=== PATIENT | male | born 1990 | race Caucasian/White ===

== ENCOUNTER → 2023-09-29 | Outpatient (CLI) | payer BC ==
--- NOTE | 2023-09-29 07:49 | US ---
EXAMINATION TYPE: US liver DATE OF EXAM: 09/29/2023 COMPARISON: NONE CLINICAL INDICATION: Male, 33 years old with history of R94.5 abn labs, R00.2; Elevated liver enzymes TECHNIQUE: Multiple sonographic images of the right upper quadrant are obtained. 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
--- NOTE | 2023-09-29 10:28 | CA ---
Stress Echo Report Manny Perkins Age: 33 Gender: M : 1990 Exam Date: 09/29/2023 09:29 Exam Location: [facility] Ht (in): 72 Wt (lb): 310 Ordering Physician: Pop Cade DO Referring Physician: POP CADE Manager Account Management: Phyllis Starks [facility] Technologist Mirta Gongkarthikeyan POOLE Procedure CPT: Indication: R00.2 palpitations ICD-9 Codes: Rhythm: Patient History: PALPITATIONS, HYPERTENSION, FAMILY HISTORY, SMOKER (QUIT TOBACCO 3 YEARS AGO, CURRENTLY VAPES) ASTHMA Cardiac Medications: LOZARTAN, AMLODIPINE, HYDROCHLOROTHIAZIDE Medications in past 24 hours: Contrast: N/A Stress Results Protocol: Bert Total dose(mL): Exercise Duration (min:sec): 09:[address] Depression (mm): Angina Score: Rossi Score: METS: 10.9 Resting HR: 67 Resting BP: 139 / 66 Peak HR: 170 Peak BP: 241 / 54 Max Predicted HR: 189 90 % Max Predicted HR Target HR: 161 Double Product: 39067 Stress Summary: The patient's target heart rate was achieved BP Response: Reason for Termination: Reached target heart rate or work-load, Maximal effort/unable to continue Cardiac Symptoms: ASYMPTOMATIC ECG Analysis Resting ECG: Stress ECG: Arrhythmia: Echo Analysis Resting Echo: Peak Echo Analysis: MEASUREMENTS (Male/Female) Normal Values CONCLUSIONS Baseline EKG revealed a normal sinus rhythm without significant ST-T changes. Patient walked for 9-1/2 minutes on a standard Bert protocol and achieved a maximum heart rate of 170 bpm which is more than 85% of predicted maximal. There was no angina there was no arrhythmia and there were no EKG changes to indicate ischemia. This is a negative stress test with fair exercise capacity by EKG criteria. Resting blood pressure was 138/66 and peak blood pressure was 240/54. Patient had a hypertensive response to exercise Baseline echo images revealed normal wall motion wall thickening of all segments. At peak exercise there was good augmentation of left ventricular wall motion wall thickening of all segments suggesting that there is no evidence of stress-induced ischemia on this study. Final impression: #1 negative stress test by EKG criteria with fair exercise capacity and hypertensive response to exercise #2 normal stress echocardiogram without evidence of ischemia Dr. Coretta Kramer MD (Electronically Signed) Final Date: 29 September 2023 10:27
== END | disposition home or self-care (01) ==
LOC: RADUSWWP 06:52
PROVIDERS: ATTEND Family Medicine
DX: K76.0 Fatty (change of) liver, not elsewhere classified (principal); R00.2 Palpitations; R94.5 Abnormal results of liver function studies; R16.0 Hepatomegaly, not elsewhere classified; Z82.49 Family history of ischemic heart disease and other diseases of the circulatory system
CPT/HCPCS: 76705; 93270; 93351

== ENCOUNTER 2024-11-24 07:16 | Day surgery (SDC) | payer BC ==
[~2024-11-24 07:16] MED LIST: LACTATED RINGERS 1,000 ML IV SCH; LIDOCAINE 1% (10MG/ML) FOR IV START INTRADERMA PRN
[2024-11-24 07:29] VITALS: TEMP 97.9
[2024-11-24] MEDS: OXYMETAZOLINE 0.05% NASL SPRAY 1 SPRAY BOTTLE EA NOSTRIL PRN (07:36)
[2024-11-24] MEDS: LACTATED RINGERS 1,000 ML IV ONE ×2 (07:41→08:14)
[2024-11-24] MEDS: DEXAMETHASONE SOD PHOSPHATE 4 MG/ML 1 ML VIAL IV ONE (07:45)
[2024-11-24] MEDS: FAMOTIDINE 20 MG/2 ML VIAL IV PRN (07:46)
[2024-11-24] MEDS: ONDANSETRON 4 MG/2 ML VIAL IVP ONE (07:47)
[2024-11-24] MEDS ORDERED: fentaNYL (PF) 50 MCG/ML 2 ML AMP ONE (08:12)
[2024-11-24] MEDS ORDERED: MIDAZOLAM 2 MG/2 ML VIAL ONE (08:12)
[2024-11-24] MEDS ORDERED: PROPOFOL 10 MG/ML 20 ML VIAL IV ONE (08:12)
[2024-11-24] MEDS: ceFAZolin 3 GM in SODIUM CHLORIDE 0.9% 100 ML IVPB PRN (08:17)
[2024-11-24] MEDS: LIDOCAINE 1%-EPI 1:100,000 20 ML VIAL SUBMUCOSAL ONE (08:35)
[2024-11-24] MEDS: BACITRACIN OINT 1 EACH PACKET TOPICAL ONE (09:08)
--- NOTE | 2024-11-24 09:08 | P.OP ---
Date of Procedure: 11/24/24 Preoperative Diagnosis: deviated nasal septum Inferior turbinate hypertrophy Adhesions left nasal cavity Postoperative Diagnosis: same Procedure(s) Performed: septoplasty Outfracture and submucous resection inferior turbinates Left nasal endoscopy with lysis of adhesions left nasal cavity Anesthesia: KENNETHA Surgeon: [place] Estimated Blood Loss (ml): 5 Pathology: other (nasal septal bone and cartilage) Condition: stable Disposition: PACU Indications for Procedure: this is a 34-year-old white male with chronic nasal obstruction bilaterally left greater than right which has not improved with conservative medical management including steroid nasal spray Operative Findings: nasal septum deviated to the right anteriorly and to the left posteriorly. there was an adhesion between the septum and inferior turbinate on the left Description of Procedure: DESCRIPTION OF PROCEDURE: The patient was brought to the operative suite, placed in the supine position. The patient underwent induction of general anesthesia with oral endotracheal intubation without difficulty. The patient was prepped and draped in the usual aseptic fashion. 1% lidocaine with 1:100,000 epinephrine was infused submucosally on both sides of the nasal septum. While this was taking vasoconstrictive effect, the inferior turbinates were infractured with a [place] elevator. Partial submucous resection of the inferior turbinates was performed with Coblation device ablating a portion of the submucosal soft tissue. The inferior turbinates were then outfractured with a [place] elevator. there was an adhesion approximate 8 mm across between the inferior turbinate on the left and the septum. This was lysed sharply with #15 blade which allowed outfracture of inferior turbinate also. A left hemitransfixion incision was then made through the mucoperichondrial. Mucoperiosteal flap on the left elevated. Bony cartilaginous junction was disarticulated and mucoperiosteal flap on the right was elevated. Bony nasoseptal deformity were removed with Chalino forceps and an inferior cartilaginous strip was removed, leaving a full 1.5 cm caudal strut. Checking intranasally, this corrected the nasal septal deformities and the hemitransfixion incision was closed with running 4-0 chromic suture. The bilateral Paula airway splints coated in bacitracin ointment were placed in the nasal cavities and sutured transseptally with 4-0 nylon suture. The patient was then suctioned in an orogastric fashion. The patient was allowed to emerge from general anesthesia, having tolerated the procedure well and was extubated in the operating suite, transferred to postoperative recovery area in satisfactory condition.
[2024-11-24] MEDS: HYDROmorphone 0.5 MG/0.5 ML SYRINGE IVP PRN (09:30)
[2024-11-24 10:03] VITALS: RESP 16
[2024-11-24] MEDS: HYDROcodone/APAP 5-325MG 1 EACH TAB PO STA (10:11)
[2024-11-24 10:19] VITALS: PULSE 69
[2024-11-24 10:27] VITALS: BP 158/95
== END 2024-11-24 10:53 | disposition home or self-care (01) ==
LOC: OR 07:16
PROVIDERS: ATTEND Otolaryngology
DX: J34.2 Deviated nasal septum (principal); J34.3 Hypertrophy of nasal turbinates; I10 Essential (primary) hypertension; J45.909 Unspecified asthma, uncomplicated; F17.200 Nicotine dependence, unspecified, uncomplicated; Z88.0 Allergy status to penicillin; Z79.899 Other long term (current) drug therapy
CPT/HCPCS: 88300; 30520; 30140; J2250; J1100; J0690; J2405; J3010; J3490; J2704; J1171